=== PATIENT | female | born 1945 | race Caucasian/White ===

== ENCOUNTER 2017-01-07 12:05 | Outpatient (CLI) | payer MEDICARE, OTHER ==
--- NOTE | 2017-01-07 13:23 | RAD ---
CHEST 2 VIEWS: Date: 01/07/17 HISTORY: Dyspnea. COMPARISON: 02/07/14. FINDINGS: Cardiac silhouette is upper limits of normal in size. Pulmonary vasculature is now upper limits of n ormal with mild patchy bibasilar infiltrates. Parenchymal opacity at the left posterior lung base braun s increased significantly since the 08/16/16 exam. Bilateral pleural fluid is suspected. IMPRESSION: Increasing pleural fluid and bibasilar infiltrates, left greater than right. Please consider correla tion with CT chest for better characterization and comparison to CT from 08/16/16. POS: [facility]
== END 2017-01-07 12:06 | disposition home or self-care (01) ==
LOC: RAD 12:05
PROVIDERS: ATTEND Internal Medicine Pulmonary Disease
DX: R06.00 Dyspnea, unspecified (principal)
CPT/HCPCS: 71020

== ENCOUNTER 2017-01-24 21:39 | Emergency (ER) | payer MEDICARE, OTHER ==
[2017-01-25 00:54] LABS: #Basophils 0.1 thou/uL (0.0-0.2); #Eosinphils 0.3 thou/uL (0.0-0.7); #Lymphocytes 2.6 thou/uL (1.20-3.40); #Neutrophils 4.8 thou/uL (1.40-6.50); %Basophils 0.9 % (0.0-1.0); %Eosinophils 3.1 % (0.0-10.0); %Lymphocytes 30.1 % (21.0-51.0); %Monocytes 10.9 % (0.0-10.0); Hematocrit 42.9 % (36.0-47.0); Mean Platelet Volume 6.6 fL (7.4-10.4); Red Blood Cell (RBC) Count 4.26 mill/uL (4.20-5.40); White Blood Cell (WBC) Count 8.7 thou/uL (4.8-10.8)
[2017-01-25 01:14] LABS: ALT (SGPT) 12 U/L (8-55); AST (SGOT) 17 U/L (5-34); Alkaline Phosphatase 83 U/L (40-150); Anion Gap 10 mmol/L (10-20); BUN (Urea Nitrogen) 24 mg/dL (9.8-20.1); Bilirubin, Total 0.3 mg/dL (0.2-1.2); Calc. Creatinine Clearance 0 mL/min (70-130); Calcium 9.1 mg/dL (7.8-10.44); Carbon Dioxide 30 mmol/L (23-31); Chloride 103 mmol/L (98-107); Estimated GFR-MDRD 61; Globulin 3.9 g/dL (2.4-3.5); Protein, Total 7.8 g/dL (6.0-8.3)
[2017-01-25] MEDS ORDERED: Furosemide 20 MG/2 ML VIAL ONE (03:11)
--- NOTE | 2017-01-25 08:28 | CT ---
PRELIMINARY REPORT/[facility]/EMERGENCY AFTER HOURS PROCEDURE: EXAM: CT Angiography Chest With Intravenous Contrast CLINICAL HISTORY: 71 years old, female; Signs and symptoms; Dyspnea; Patient HX: R/O pe TECHNIQUE: Axial computed tomographic angiography images of the chest with intravenous contrast using pulmonary embolism protocol. CONTRAST: 80 mL of ISOVUE administered intravenously. COMPARISON: No relevant prior studies available. FINDINGS: Pulmonary arteries: No pulmonary embolism. Aorta: Atherosclerotic disease of the thoracic aorta, without aneurysm or dissection. Lungs: Small bilateral pleural effusions, with associated bilateral posterior lower lobe rounded ate lectasis. Pleural space: See above. Heart: Normal. Mediastinum: Small-sized hiatal hernia. Bones/joints: Multilevel thoracic spine degenerative changes. No acute fracture. No dislocation. Soft tissues: Normal. Lymph nodes: Normal. Liver: Simple hepatic cysts. IMPRESSION: 1. No pulmonary embolism. 2. Small bilateral pleural effusions, with associated bilateral posterior lower lobe rounded atelect asis. 3. Incidental/non-acute findings are described above. Thank you for allowing us to participate in the care of your patient. Dictated and Authenticated by: Terell Dong MD 01/25/2017 2:58 AM Central Time ([place] \T\ [place]) FINAL REPORT CT PULMONARY ANGIOGRAM INCLUDING 3D RENDERING: EMERGENT AFTER HOURS EXAM TIME: 2:35 a.m. DATE: 01/25/17. No evidence for a pulmonary embolism. Small pleural effusions and bilateral posterior lower lobe at electatic changes. Other findings as above. POS: [facility]
[2017-01-25] MEDS ORDERED: ISOVUE-370 76%-LOCM 1 ML ONE (15:52)
== END 2017-01-25 03:29 | disposition home or self-care (01) ==
LOC: ERS 21:39
DX: I10 Essential (primary) hypertension (principal); R60.9 Edema, unspecified; I48.91 Unspecified atrial fibrillation; E03.9 Hypothyroidism, unspecified
CPT/HCPCS: 36415; 71275; 80053; 83880; 84443; 84550; 85007; 85025; 85027; 85379; 85652; 86430; 93005; J1940

== ENCOUNTER 2018-08-14 09:42 | Outpatient (CLI) | payer MEDICARE, OTHER ==
--- NOTE | 2018-08-14 10:26 | MMO ---
Bilateral MAMMO Bilat Screen [facility]. CLINICAL HISTORY: Patient is 73 years old and is seen for screening. The patient has the following family history of breast cancer: mother, at age 59. The patient has no personal history of cancer. The patient has a history of left Excisional Biopsy in 2004 - benign. VIEWS: The views performed were: bilateral craniocaudal with tomosynthesis; bilateral mediolateral oblique with tomosynthesis; and left craniocaudal. FILMS COMPARED: The present examination has been compared to prior imaging studies performed at [facility] on 05/26/2015, 05/29/2015, 12/05/2015 and 08/07/2016. MAMMOGRAM FINDINGS: The breasts are heterogeneously dense, which could obscure a lesion on mammography. There are stable benign appearing calcifications seen in both breasts. There are no suspicious masses, suspicious calcifications, or new areas of architectural distortion. IMPRESSION: THERE IS NO MAMMOGRAPHIC EVIDENCE OF MALIGNANCY. A ROUTINE FOLLOW-UP MAMMOGRAM IN 1 YEAR IS RECOMMENDED. THE RESULTS OF THIS EXAM WERE SENT TO THE PATIENT. ACR BI-RADS Category 2 - Benign finding MAMMOGRAPHY NOTE: 1. A negative mammogram report should not delay a biopsy if a dominant of clinically suspicious mass is present. 2. Approximately 10% to 15% of breast cancers are not detected by mammography. 3. Adenosis and dense breasts may obscure an underlying neoplasm.
== END 2018-08-14 09:43 | disposition home or self-care (01) ==
LOC: BICMAMMO 09:42
PROVIDERS: ATTEND Internal Medicine
DX: Z12.31 Encounter for screening mammogram for malignant neoplasm of breast (principal); Z80.3 Family history of malignant neoplasm of breast
CPT/HCPCS: 77063; 77067

== ENCOUNTER 2019-12-08 15:22 | Outpatient (CLI) | payer MEDICARE, OTHER ==
--- NOTE | 2019-12-08 16:16 | MMO ---
Bilateral MAMMO Bilat Screen [facility]. CLINICAL HISTORY: Patient is 74 years old and is seen for screening. The patient has the following family history of breast cancer: mother, at age 59. The patient has no personal history of cancer. The patient has a history of left Excisional Biopsy in 2004 - benign. VIEWS: The views performed were: bilateral craniocaudal with tomosynthesis and bilateral mediolateral oblique with tomosynthesis. FILMS COMPARED: The present examination has been compared to prior imaging studies performed at [facility] on 05/29/2015, 12/05/2015, 08/07/2016 and 08/14/2018. This study has been interpreted with the assistance of computer-aided detection. MAMMOGRAM FINDINGS: The breasts are heterogeneously dense, which could obscure a lesion on mammography. There is a new focal asymmetry with associated architectural distortion seen in the posterior outer region of the left breast located 11 centimeters from the nipple. This is very suspicious for breast cancer. In the right breast, there are no suspicious masses, calcifications or areas of architectural distortion. IMPRESSION: NEW FOCAL ASYMMETRY IN THE LEFT BREAST REQUIRES ADDITIONAL EVALUATION. AN ULTRASOUND EXAM IS RECOMMENDED. ADDITIONAL IMAGING. THE RESULTS OF THIS EXAM WERE SENT TO THE PATIENT. ACR BI-RADS Category 0 - Incomplete: Need additional imaging evaluation. [facility] will notify the patient of the need for additional imaging services. MAMMOGRAPHY NOTE: 1. A negative mammogram report should not delay a biopsy if a dominant of clinically suspicious mass is present. 2. Approximately 10% to 15% of breast cancers are not detected by mammography. 3. Adenosis and dense breasts may obscure an underlying neoplasm. Reported by: ALEJANDRA BREAUX MD Electonically Signed: [id number]
== END 2019-12-08 15:23 | disposition home or self-care (01) ==
LOC: BICMAMMO 15:22
PROVIDERS: ATTEND Internal Medicine
DX: Z12.31 Encounter for screening mammogram for malignant neoplasm of breast (principal); N64.89 Other specified disorders of breast; Z91.89 Other specified personal risk factors, not elsewhere classified; Z80.3 Family history of malignant neoplasm of breast
CPT/HCPCS: 77063; 77067

== ENCOUNTER 2019-12-14 13:47 | Outpatient (CLI) | payer MEDICARE, OTHER ==
--- NOTE | 2019-12-14 14:10 | ULT ---
US Breast Limited Lt: 12/14/2019 2:05 PM CLINICAL INDICATION: 3:00 left breast mass on mammography. COMPARISON: 12/08/2019 TECHNIQUE: Multiplanar grayscale and color Doppler images were obtained of the breast. FINDINGS: There is a hypoechoic mass at the 3:00 position of the left thorax possibly 8 cm from the nipple. Thi s measures approximately 1 2.0 cm in greatest dimension. Targeted ultrasound of the axilla shows a normal-appearing axillary lymph node with a fatty hilum. IMPRESSION: BI-RADS Category 4-suspicious abnormality. A left breast mass biopsy is recommended.
== END 2019-12-14 13:48 | disposition home or self-care (01) ==
LOC: BICULT 13:47
PROVIDERS: ATTEND Internal Medicine
DX: R92.2 Inconclusive mammogram (principal)

== ENCOUNTER → 2019-12-15 | Day surgery (SDC) | payer MEDICARE, OTHER ==
--- NOTE | 2019-12-15 14:03 | MMO ---
FILMS COMPARED: The present examination has been compared to prior imaging studies performed at [facility] on 08/07/2016, 08/14/2018, 12/08/2019 and 12/14/2019. MAMMOGRAM FINDINGS: The breast is heterogeneously dense, which could obscure a lesion on mammography. There is a biopsy clip seen in the left breast. The clip is deployed slightly medial, inferior, and anterior to the tumor mass. IMPRESSION: BIOPSY CLIP IN THE LEFT BREAST IS CONFIRMED UTILIZING POST PROCEDURE MAMMOGRAM. Reported by: ALEJANDRA BREAUX MD Electonically Signed: [id number]
--- NOTE | 2019-12-16 12:10 | ULT ---
ULTRASOUND GUIDED LEFT BREAST BIOPSY: Date: 11/18/2019 HISTORY: 74-year-old female with left breast mass. TECHNIQUE: Signed, informed consent obtained. Lateral approach. Skin of breast was prepped and draped in the usu al sterile fashion. 25 gauge needle used to apply buffered lidocaine superficially and deeply. Under ultrasound guidance, 13 gauge introducer needle advanced to posterior edge of targeted breast mass. 1 4 gauge biopsy needle advanced through the introducer needle in coaxial fashion. Biopsy gun fired, arianna sevilla core tissue sample, which was placed in Formalin. This was repeated, for a total of two passes . Finally, a biopsy clip was placed. It was deployed anterior, inferior, and medial to the mass, as dem onstrated on the subsequent mammogram. Patient tolerated the procedure well. No complications. The left axillary lymph node was not biopsied. IMPRESSION: Technically successful ultrasound guided left breast biopsy. ADDENDUM: Pathology results are positive for invasive breast cancer. Dr. Coffey notified Dr. Mario of the resul t at 4:26 pm 12/15/1009, and notified the patient by phone at 4:31 pm 12/15/1009. She was instructed t o contact Dr. Mario. Note: For the needle localization to be performed at time of surgical excision, it should be noted that the biopsy clip is anterior, inferior, and medial to the mass. The radiologist performing the needle lo calization may wish to consider performing the procedure under ultrasound guidance rather than mammog raphic guidance, because of that reason, and because the mass is much better visualized under ultraso und than mammographically. BIRADS 6- Biopsy-proven, known malignancy. POS: [facility]
== END ==
LOC: BICULT 12:46
PROVIDERS: ATTEND Internal Medicine
PROC: 0H9U3ZX Drainage of Left Breast, Percutaneous Approach, Diagnostic (ICD-10-PCS; principal; 2019-12-15)
DX: C50.812 Malignant neoplasm of overlapping sites of left female breast (principal)
CPT/HCPCS: 19083; 88305; 88341; 88342

== ENCOUNTER 2020-01-17 13:28 | Outpatient (CLI) | payer MEDICARE, OTHER ==
--- NOTE | 2020-01-17 14:24 | RAD ---
RADIOGRAPH CHEST 2 VIEW: DATE: 01/17/2020 TIME: 2:06 PM HISTORY: 74-year-old female for preoperative clearance COMPARISON: 02/17/2018 FINDINGS: Small bilateral pleural effusions. Chronic pulmonary opacities at the posterior bases of bilateral lo wer lobes suggestive of scar tissue is unchanged. One of the lesions on the left is probably round atelectasis, as demonstrated on prior recent CT. No new infiltrate or pulmonary edema. No pneumothora x. No interval change. IMPRESSION: 1) small bilateral pleural effusions 2) chronic changes in the bilateral lower lobes. 3) findings are very similar to 02/17/2018
[2020-01-17 15:09] LABS: #Basophils 0.1 10x3/uL (0.0-0.2); #Eosinphils 0.2 10x3/uL (0.0-0.5); #Monocytes 0.8 10x3/uL (0.0-1.1); #Neutrophils 4.9 10x3/uL (1.5-8.4); %Basophils 0.6 % (0.0-2.0); %Eosinophils 1.8 % (0.0-6.0); %Lymphocytes 27.1 % (18.0-47.0); %Monocytes 9.8 % (0.0-10.0); %Neutrophils 60.3 % (40.0-75.0); Hemoglobin 14.6 g/dL (12.0-16.0); Mean Corpuscular HGB CONC 33.1 G/DL (32.0-36.0); Mean Corpuscular Hemoglobin 31.9 PG (27.0-33.0); Mean Corpuscular Volume 96.5 fl (80.0-100.0); Mean Platelet Volume 10.2 fl (7.4-10.4); Platelet Count 222 10x3/uL (130-400); RBC Distribution Width 12.6 % (11.5-14.5); Red Blood Cell (RBC) Count 4.57 10x6/uL (3.90-5.20); White Blood Cell (WBC) Count 8.2 10x3/uL (4.5-11.0)
[2020-01-17 15:19] LABS: Anion Gap 16 mmol/L (10-20); BUN (Urea Nitrogen) 20 mg/dL (9.8-20.1); Calc. Creatinine Clearance 0 mL/min (70-130); Calcium 8.9 mg/dL (7.8-10.44); Carbon Dioxide 23 mmol/L (23-31); Chloride 104 mmol/L (98-107); Estimated GFR-MDRD 56; Glucose 104 mg/dL (83-110); Potassium 4.6 mmol/L (3.5-5.1); Sodium 138 mmol/L (136-145)
[2020-01-18 12:09] LABS: SARS-CoV-2 MS2 Positive; SARS-CoV-2 N Gene Negative; SARS-CoV-2 S Gene Negative; SARS-CoV-2 by NAA Not Detected (NotDetected); SARS-CoV-2 orf1ab Negative
--- NOTE | 2020-01-18 23:43 | EKG ---
Test Reason : Blood Pressure : / mmHG Vent. Rate : 066 BPM Atrial Rate : 066 BPM P-R Int : 174 ms QRS Dur : 130 ms QT Int : 452 ms P-R-T Axes : 074 043 269 degrees QTc Int : 473 ms Normal sinus rhythm Non-specific intra-ventricular conduction block Cannot rule out Septal infarct , age undetermined T wave abnormality, consider inferolateral ischemia Abnormal ECG No previous ECGs available Confirmed by Blanca BUTLER ([id number]) on 01/18/2020 11:43:28 PM Referred By: FRED Confirmed By:Blanca BUTLER
== END 2020-01-17 13:29 | disposition home or self-care (01) ==
LOC: LABBT 13:28
PROVIDERS: ATTEND Specialist
DX: Z01.818 Encounter for other preprocedural examination (principal); C50.919 Malignant neoplasm of unspecified site of unspecified female breast; J90 Pleural effusion, not elsewhere classified; R91.8 Other nonspecific abnormal finding of lung field; Z20.828 Contact with and (suspected) exposure to other viral communicable diseases
CPT/HCPCS: 71046; 80048; 85025; 93005; U0003; 87635; 93010

== ENCOUNTER 2020-01-20 08:35 | Day surgery (SDC) | payer MEDICARE, OTHER ==
[2020-01-19 13:14] VITALS: BMI 30.8
[2020-01-20] MEDS ORDERED: Acetaminophen 500 MG TAB ONE (08:45)
[2020-01-20] MEDS ORDERED: Ketorolac Tromethamine 30 MG/ML VIAL ONE (08:46)
[2020-01-20] MEDS ORDERED: Fentanyl 100 MCG/2 ML VIAL ONE ×2 (09:49→10:43)
[2020-01-20] MEDS ORDERED: EPINEPHrine 1 MG/ML AMP ONE ×2 (10:35→12:06)
[2020-01-20] MEDS ORDERED: Bupivacaine 0.25% HCL 30 ML VIAL ONE ×2 (10:35→12:06)
[2020-01-20] MEDS ORDERED: Midazolam HCl 2 mg/2 ml Vial ONE (10:43)
[2020-01-20] MEDS ORDERED: Lidocaine 1% w/Epinephrine 1:100K 20 ML VIAL ONE (10:51)
[2020-01-20] MEDS ORDERED: Dexamethasone 20 MG/5 ML VIAL ONE (11:47)
[2020-01-20] MEDS ORDERED: Glycopyrrolate 0.2 MG/ML 5 ML SYRINGE ONE (11:47)
[2020-01-20] MEDS ORDERED: Ondansetron PF 4 MG/2 ML Vial ONE (11:47)
[2020-01-20] MEDS ORDERED: PHENYLEPHRINE-NS 100 MCG/ML 10 ML SYRINGE ONE (11:47)
[2020-01-20] MEDS ORDERED: EPHEDRINE 25 MG/5 ML SYRINGE ONE (11:47)
[2020-01-20] MEDS ORDERED: Lidocaine 1% PF 5 ML VIAL ONE (11:47)
[2020-01-20] MEDS ORDERED: PROPOFOL 200 MG/20 ML VIAL ONE (11:47)
--- NOTE | 2020-01-20 12:06 | MMO ---
Surgical specimen mammography HISTORY: Left breast lumpectomy FINDINGS: Mammographic evaluation of the surgical specimen obtained by Dr. Slater shows localization wire, microcalcifications, and an S shaped metallic clip to overlie the specimen tissue. Findings were called to Dr. Slater in the OR at the time of the exam.
[2020-01-20] MEDS ORDERED: Heparin 10,000 UNITS/ 10 ML VIAL ONE (12:19)
[2020-01-20] MEDS ORDERED: Sodium Chloride 0.9% 0 ML ONE (12:19)
[2020-01-20] MEDS ORDERED: HYDROcodone/Acetaminophen 5/325 mg Tablet ONE (14:51)
--- NOTE | 2020-01-21 01:37 | OP ---
DATE OF PROCEDURE: 01/20/2020 PREOPERATIVE DIAGNOSIS: Left breast cancer, metastatic to axillary lymph nodes. POSTOPERATIVE DIAGNOSIS: Left breast cancer, metastatic to axillary lymph nodes. PROCEDURES PERFORMED: Left breast ultrasound-guided needle localization, left needle localized lumpectomy, left axillary lymph node dissection. ANESTHESIA: General endotracheal. INDICATIONS: The patient is a 74-year-old white female. She was diagnosed with a left breast cancer and has biopsy-proven axillary lymph node metastasis. She was taken to the operating room at this time for lumpectomy and axillary node dissection. DESCRIPTION OF OPERATION: Informed consent was obtained. The patient was taken to the operating room, where general endotracheal anesthesia was obtained with the patient in supine position. Left breast and axilla were prepped with ChloraPrep and draped in sterile fashion. Ultrasound was utilized to identify the malignancy in the left breast. This is at about the four o'clock radian. The location of the malignancy was marked on the skin in a grid fashion. Localizing needle was passed through the malignancy in a medial to lateral fashion, placing this at the posterior aspect of the malignancy. Local anesthetic was infiltrated using 0.25% Marcaine with epinephrine. A transverse incision was created based on needle insertion site. Dissection was carried through skin and subcutaneous tissue. Flaps were raised superiorly, inferiorly and medially behind the wire. I utilized ultrasound during the dissection to optimize the resection. The malignancy was dissected as a wide lump around the localizing wire and the specimen was removed intact. There appeared to be appropriate margins around the cancer when it was removed. The lesion was tagged with sutures for orientation and passed off the field. Specimen radiograph revealed appropriate clip removal. The wound was irrigated. All irrigant was aspirated. Meticulous hemostasis obtained with electrocautery. The wound was closed in layers with 3-0 and 4-0 Monocryl. Attention was turned to the axilla. A transverse incision was created at the inferior aspect of the axilla. Dissection was carried through skin and subcutaneous tissue. Flaps were raised inferiorly, superiorly and anteriorly. Dissection was carried down to the pectoralis. Dissection was then carried up the lateral aspect of the pectoralis to identify the axillary vein. Careful dissection was carried out at the inferior aspect of the axillary vein to identify the thoracodorsal vessels and the long thoracic nerve, each of which were preserved throughout the case. All fatty and lymphatic tissue were dissected out of the axilla in a superior to inferior fashion. Investing lymphatics and structures were divided between hemoclips. Only one significantly enlarged node was definitely identified during the reduction. The axillary tissue was passed off the field. The wound was carefully inspected and hemostasis obtained with electrocautery. A #19 round fluted drain was placed within the wound and brought out inferiorly, where it was secured with 3-0 nylon suture. The wound was closed in layers with 3-0 and 4-0 Monocryl. Dermabond was placed on both incision sites. A sterile occlusive dressing was applied over the drain exit site. There were no complications. The patient tolerated the procedure well and was taken to recovery room in stable condition. Job ID: [id number]
== END 2020-01-20 15:15 | disposition home or self-care (01) ==
LOC: SDC 08:35
PROVIDERS: ATTEND Specialist
PROC: 0HBU0ZZ Excision of Left Breast, Open Approach (ICD-10-PCS; principal; 2020-01-20)
PROC: 07B60ZZ Excision of Left Axillary Lymphatic, Open Approach (ICD-10-PCS; 2020-01-20)
DX: C50.512 Malignant neoplasm of lower-outer quadrant of left female breast (principal); C77.3 Secondary and unspecified malignant neoplasm of axilla and upper limb lymph nodes; E03.9 Hypothyroidism, unspecified; I10 Essential (primary) hypertension; I48.91 Unspecified atrial fibrillation; Z17.0 Estrogen receptor positive status [ER+]; Z79.82 Long term (current) use of aspirin; Z79.899 Other long term (current) drug therapy
CPT/HCPCS: 76098; 88307; J0171; J0690; J1100; J1642; J1644; J1885; J2250; J2405; J2704; J3010; S0020

== ENCOUNTER 2021-01-30 14:55 | Outpatient (CLI) | payer MEDICARE | END 2021-01-30 14:56 | disposition home or self-care (01) | LOC: BICMAMMO 14:55 | PROVIDERS: ATTEND Internal Medicine | DX: R92.8 Other abnormal and inconclusive findings on diagnostic imaging of breast (principal) | CPT/HCPCS: 77066; G0279 ==

== ENCOUNTER 2021-02-10 19:21 | Emergency (ER) | payer MEDICARE | END 2021-02-10 22:35 | disposition home or self-care (01) | LOC: ERS 19:21 | DX: S83.8X1A Sprain of other specified parts of right knee, initial encounter (principal); I48.91 Unspecified atrial fibrillation; E03.9 Hypothyroidism, unspecified; I10 Essential (primary) hypertension; Z79.899 Other long term (current) drug therapy; Z79.82 Long term (current) use of aspirin; W22.8XXA Striking against or struck by other objects, initial encounter ==

== ENCOUNTER 2022-03-14 14:33 | Outpatient (CLI) | payer MEDICARE | END 2022-03-14 14:34 | disposition home or self-care (01) | LOC: BICMAMMO 14:33 | PROVIDERS: ATTEND Internal Medicine | DX: Z08 Encounter for follow-up examination after completed treatment for malignant neoplasm (principal); Z85.3 Personal history of malignant neoplasm of breast | CPT/HCPCS: 77066; G0279 ==

== ENCOUNTER 2022-11-07 14:50 | Outpatient (CLI) | payer MEDICARE | END 2022-11-07 14:51 | disposition home or self-care (01) | LOC: ULT 14:50 | PROVIDERS: ATTEND Internal Medicine Hematology & Oncology | DX: R06.00 Dyspnea, unspecified (principal); I08.3 Combined rheumatic disorders of mitral, aortic and tricuspid valves | CPT/HCPCS: 93306 ==

== ENCOUNTER 2023-05-15 13:18 | Outpatient (CLI) | payer MEDICARE | END 2023-05-15 13:19 | disposition home or self-care (01) | LOC: BICMAMMO 13:18 | PROVIDERS: ATTEND Internal Medicine | DX: Z08 Encounter for follow-up examination after completed treatment for malignant neoplasm (principal); Z85.3 Personal history of malignant neoplasm of breast | CPT/HCPCS: 77066; G0279 ==

== ENCOUNTER 2024-03-01 09:15 | Outpatient (CLI) | payer MEDICARE ==
[2024-03-01] MEDS ORDERED: Iopamidol 370 76% 100 ML VIAL ONE (12:46)
== END 2024-03-01 09:16 | disposition home or self-care (01) ==
LOC: BICCT 09:15
PROVIDERS: ATTEND Internal Medicine Hematology & Oncology
DX: C50.812 Malignant neoplasm of overlapping sites of left female breast (principal); J90 Pleural effusion, not elsewhere classified; J98.11 Atelectasis; I77.1 Stricture of artery
CPT/HCPCS: 71260; 74177

== ENCOUNTER 2024-03-30 16:22 | Inpatient (IN) | payer MEDICARE ==
[2024-03-30 17:56] LABS: Hematocrit 38.4 % (36.0-47.0); Hemoglobin 12.5 g/dL (12.0-16.0); Mean Corpuscular HGB CONC 32.6 g/dL (32.0-36.0); Mean Corpuscular Hemoglobin 31.8 pg (27.0-31.0); Mean Corpuscular Volume 97.7 fL (78.0-98.0); Mean Platelet Volume 9.5 fL (7.4-10.4); Platelet Count 235 10x3/uL (130-400); RBC Distribution Width 12.8 % (11.5-14.5); Red Blood Cell (RBC) Count 3.93 mill/uL (4.20-5.40)
[2024-03-30 18:08] LABS: INR-International Normal Ratio 1.2; Prothrombin Time 15.2 sec (12.0-14.7)
[2024-03-30 18:09] LABS: PTT 36.8 sec (22.9-36.1)
[2024-03-30 18:17] LABS: ALT (SGPT) 20 U/L (8-55); AST (SGOT) 27 U/L (5-34); Alkaline Phosphatase 73 U/L (40-110); Anion Gap 14 mmol/L (10-20); BUN (Urea Nitrogen) 15 mg/dL (9.8-20.1); Bilirubin, Total 0.4 mg/dL (0.2-1.2); Calc. Creatinine Clearance 0 mL/min (70-130); Calcium 8.9 mg/dL (7.8-10.44); Carbon Dioxide 25 mmol/L (23-31); Chloride 103 mmol/L (98-107); Estimated GFR 51; Globulin 4.5 g/dL (2.4-3.5); Glucose 137 mg/dL (83-110); Lipase 14 U/L (8-78); Potassium 3.6 mmol/L (3.5-5.1); Protein, Total 7.5 g/dL (5.8-8.1); Sodium 138 mmol/L (136-145)
[2024-03-30 18:40] LABS: Lymphocytes 5 % (21-51); Monocytes 7 % (0-10); Neutrophil 84 % (42-75); Platelet Adequacy Comment Platelets Normal; Polychromasia SLIGHT = 2-3 cells HPF (0-2); Reactive Lymphocytes 4 % (0-10); Smudge Cells 11.1 %
[2024-03-30] MEDS ORDERED: Piperacillin/Tazobactam 4.5 GM VIAL ONE (20:34)
[2024-03-30] MEDS ORDERED: Sodium Chloride 0.9% 100 ML ONE (20:34)
[2024-03-30] MEDS ORDERED: Insulin Lispro 100 UNIT/ML 10 ML VIAL SC PRN (20:59)
[2024-03-30] MEDS ORDERED: Zolpidem Tartrate 5 MG TAB PO PRN (20:59)
[2024-03-30] MEDS ORDERED: Dextrose 5% in Water 1,000 ML IV PRN (20:59)
[2024-03-30] MEDS ORDERED: Acetaminophen 325 MG TAB PO PRN (20:59)
[2024-03-30] MEDS ORDERED: Glucagon 1 MG/ML KIT IM PRN (20:59)
[2024-03-30] MEDS ORDERED: Dextrose 50% Abboject 50 ML SYRINGE SLOW IVP PRN (20:59)
[2024-03-30] MEDS ORDERED: Ondansetron PF 4 MG/2 ML Vial IVP PRN (20:59)
[2024-03-30] MEDS ORDERED: Morphine 2 MG/ML VIAL SLOW IVP PRN (21:02)
[2024-03-30] MEDS ORDERED: Morphine 4 MG/ML VIAL SLOW IVP PRN (21:02)
[2024-03-30] MEDS: Lactated Ringer's 1,000 ML IV SCH (23:47)
[2024-03-30] MEDS: Piperacillin/Tazobactam 3.375 GM in Sodium Chloride 0.9% 100 ML IVPB SCH (23:47)
[2024-03-31 00:10] VITALS: BMI 28.7
[2024-03-31 05:19] VITALS: TEMP 97.9
[2024-03-31 06:19] LABS: Hematocrit 35.5 % (36.0-47.0); Hemoglobin 11.7 g/dL (12.0-16.0); Mean Corpuscular Hemoglobin 31.5 pg (27.0-31.0); Mean Corpuscular Volume 95.7 fL (78.0-98.0); Mean Platelet Volume 9.7 fL (7.4-10.4); Platelet Count 236 10x3/uL (130-400); RBC Distribution Width 12.9 % (11.5-14.5); Red Blood Cell (RBC) Count 3.71 mill/uL (4.20-5.40)
[2024-03-31] MEDS: Levothyroxine Sodium 112 MCG TAB PO SCH (06:27)
[2024-03-31 06:41] LABS: Anion Gap 15 mmol/L (10-20); BUN (Urea Nitrogen) 12 mg/dL (9.8-20.1); Calc. Creatinine Clearance 77 mL/min (70-130); Calcium 8.5 mg/dL (7.8-10.44); Carbon Dioxide 21 mmol/L (23-31); Chloride 106 mmol/L (98-107); Estimated GFR 69; Glucose 123 mg/dL (83-110); Potassium 3.9 mmol/L (3.5-5.1); Sodium 138 mmol/L (136-145)
[2024-03-31 06:44] LABS: Eosinophils 2 % (0-10); Lymphocytes 11 % (21-51); Monocytes 11 % (0-10); Neutrophil 73 % (42-75); Platelet Adequacy Comment Platelets Normal; RBC Morphology Within Normal Limits; Reactive Lymphocytes 2 % (0-10)
[2024-03-31 07:55] VITALS: BP 135/86
[2024-03-31] MEDS: Sacubitril 24MG/Valsartan 26 MG TAB PO SCH (08:41)
[2024-03-31] MEDS: Amiodarone 200 MG TAB PO SCH (08:41)
[2024-03-31] MEDS: Famotidine/PF 20 mg/2ml Vial SLOW IVP SCH (08:41)
[2024-03-31] MEDS ORDERED: Rosuvastatin 20 MG TAB PO SCH (21:00)
== END 2024-03-31 14:07 | disposition home or self-care (01) | DRG 378 ==
LOC: ERS 16:22 → T4-A 21:05
PROVIDERS: ADMIT Student in an Organized Health Care Education/Training Program; ATTEND Internal Medicine
DX: K57.21 Diverticulitis of large intestine with perforation and abscess with bleeding (principal); I50.22 Chronic systolic (congestive) heart failure; J90 Pleural effusion, not elsewhere classified; J98.11 Atelectasis; E78.5 Hyperlipidemia, unspecified; R73.03 Prediabetes; I48.0 Paroxysmal atrial fibrillation; C50.912 Malignant neoplasm of unspecified site of left female breast; I11.0 Hypertensive heart disease with heart failure; E03.9 Hypothyroidism, unspecified; Z79.01 Long term (current) use of anticoagulants; Z79.899 Other long term (current) drug therapy; Z95.0 Presence of cardiac pacemaker; Z80.3 Family history of malignant neoplasm of breast
CPT/HCPCS: 36415; 36416; 74177; 80048; 80053; 83690; 85025; 85610; 85730; 86850; 86900; 86901; 94760; 96365; J2543; J3490; J7120